=== PATIENT | female | born 1945 | race Caucasian/White ===

== ENCOUNTER → 2025-01-31 12:45 | Outpatient (REF) | payer OTHER, SELFPAY | LOC: HWRAD 12:45 | PROVIDERS: ATTENDING PHYSICIAN Family Medicine | DX: M1A.0710 Idiopathic chronic gout, right ankle and foot, without tophus (tophi) (principal) | CPT/HCPCS: 73630 ==

== ENCOUNTER → 2025-02-22 07:48 | Outpatient (REF) | payer OTHER, SELFPAY | LOC: RAD 07:48 | PROVIDERS: ATTENDING PHYSICIAN Podiatrist Foot & Ankle Surgery; FAMILY PHYSICIAN Family Medicine | DX: M10.071 Idiopathic gout, right ankle and foot (principal); M10.072 Idiopathic gout, left ankle and foot; M79.671 Pain in right foot; M79.672 Pain in left foot; E11.9 Type 2 diabetes mellitus without complications | CPT/HCPCS: 73630 ==